=== PATIENT | female | born 1960 | race Caucasian/White ===

== ENCOUNTER → 2017-10-19 | Outpatient (CLI) | payer OTHER ==
[2016-12-03 20:20] VITALS: BP 199/113
[~2017-10-19] MED LIST: CARV6.252 PO; FOLI1TAB16 PO; LEFL20TA15 PO; MYCO250C44 PO; OMEP20CA9 PO; ONDA4TAB10 PO; RALO60TA PO; SIMV10TA3 PO; TACR1CAP2 PO; TEMA15CA PO
[2017-10-19 16:31] LABS: ALBUMIN 3.8 g/dL (3.4-5.0); ALBUMIN/GLOBULIN RATIO 0.9 (1.0-1.7); CALCIUM 9.6 mg/dL (8.5-10.1); CREATININE 0.9 mg/dL (0.6-1.0); GFR 64.1; POTASSIUM 3.9 mmol/L (3.5-5.1); TOTAL BILIRUBIN 0.3 mg/dL (0.2-1.0)
== END | disposition home or self-care (01) ==
LOC: EDBD 15:09 → LAB 15:09
PROVIDERS: ATTEND Internal Medicine
DX: Z94.0 Kidney transplant status (principal)
CPT/HCPCS: 36415; 80053